=== PATIENT | female | born 1970 | race Caucasian/White ===

== ENCOUNTER 2023-06-15 07:40 | Day surgery (SDC) | payer OTHER ==
[2023-06-14 16:36] LABS: Absolute Lymphocytes (CBC) 2.7 K/uL (0.7-4.9); Hematocrit 36.6 % (36.0-45.0); Lymphocytes % 47.6 % (15.3-44.8); MPV 7.6 fL (7.6-11.3); RBC Red Blood Cell Count 3.98 M/uL (3.86-4.86)
[2023-06-14 16:50] LABS: Potassium 3.8 mEq/L (3.5-5.1)
[2023-06-15] MEDS ORDERED: Ringers Lactate 1,000 ML IV ONE (08:06)
[2023-06-15] MEDS ORDERED: LIDOCAINE 1% MPF 5 ML VIAL ONE (09:37)
[2023-06-15] MEDS ORDERED: propofoL 200 MG/20 ML VIAL IV ONE (09:37)
[2023-06-15 10:40] VITALS: BP 154/91; TEMP 97.4; O2SAT 99
--- NOTE | 2023-06-15 13:25 | EKG ---
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
== END 2023-06-15 10:40 | disposition home or self-care (01) ==
LOC: OR 07:40
PROVIDERS: ATTEND Surgery
PROC: 0DBN8ZX Excision of Sigmoid Colon, Via Natural or Artificial Opening Endoscopic, Diagnostic (ICD-10-PCS; principal; 2023-06-15 10:45)
DX: Z12.11 Encounter for screening for malignant neoplasm of colon (principal); K57.30 Diverticulosis of large intestine without perforation or abscess without bleeding; K64.8 Other hemorrhoids; K64.4 Residual hemorrhoidal skin tags
CPT/HCPCS: 93005; 85025; 80048; 36415; 88305; 45380; J2704; J2001; J7120

== ENCOUNTER 2024-05-21 11:14 | Observation (INO) | payer OTHER, SELFPAY ==
--- OUTSIDE RECORDS SUMMARY | 2024-05-21 11:18 | XMS REPORT | Continuity of Care Document ---
Author Name Unknown Address [address] [facility] [address] [place] [address] [facility] thconnect Address [address] [facility]. [address] [place] [address] Care Team Providers Care Ship Surveyor Name Role Phone Umair Saeed Primary Care Physician [phone] Umair Saeed Attending Clinician Unavailable MELISA SOLIS Attending Clinician UnavailBÁRBARA Cheema Attending Clinician Unavailable GRISELDA QURESHI V Attending Clinician Unavailable WASHINGTON DANG Attending Clinician UnavailESTER Walden Attending Clinician Unavailab le Doctor Unassigned, [place] Attending Clinician U devon Wallace RN, Nakia Kerr Attending Clinician [phone] KRZYSZTOF HERNANDEZ Attending Clinician Unavailable Corwin Rincon MD Attending Clinician [phone] Krzysztof Hernandez MD Attending Clinician [phone] G_Pappas Attending Clinician Unavailable Minda Attending Clinician Unavailable ORLANDO RUIZ Attending Clinician Unavailable LISE MARTINEZ Attending Clinician Unavailable YASMEEN ROSA Attending Clinician Unavailable LUCY FELDER Attending Clinician Unavailable Chandler Sparrow Attending Clinician Unavailable RADHA EDGAR Attending Clinician Unavailable CAMILA SLAUGHTER Attending Clinician Unavailab BEN Orozco Attending Clinician Unavail able BARBIE WOODS Attending Clinician Unavailable STEPHANIE HUFF Attending Clinician Unavailab HERRERA ching BA Attending Clinician Unavailable ROCÍO HARMON Attending Clinician Unavailable CHAD RIVERA Attending Clinician KRZYSZTOF Toussaint Admitting Clinician Unavailable Krzysztof Hernandez MD Admitting Clinician [phone] G_Pappas Admitting Clinician Unavailable Rafat_Hillary Admitting Clinician Unavailable LISE MARTINEZ Admitting Clinician Unavailable Chandler Sparrow Admitting Clinician Unavailable Payers Payer Name Policy Type Policy Number Effective Date Expirati on Date Source [place] [id number] ([facility]) [id number] Problems Condition Name Condition Details Condition Category Status Onset Date Resolution Date Last Treatment Date Treating Clinician Comments Source Generalize d abdominal pain Generalize d abdominal pain Disease Active 05-01 00:00: 00 [facility] Abdominal pain Abdominal pain Disease Active 05-01 00:00: 00 [facility] Allergies, Adverse Reactions, Alerts Allergy Name Allergy Type Status Severity Reaction(s) Onset Date Inactive Date Treating Clinician Comments Source TRAMADOL DRUG INGREDI Active ITCHING 05-02 00:00: 00 [facility] Tramadol Propensi ty to adverse reaction s Active Itching 05-02 00:00: 00 [facility] Ketorola c Propensi ty to adverse reaction s Active Itching 05-01 00:00: 00 Itching, hives [facility] KETOROLA C DRUG INGREDI Active ITCHING 05-01 00:00: 00 [facility] Social History Social Habit Start Date Stop Date Quantity Comments Source History SDOH Alcohol Std Drinks [facility] History SDOH Alcohol Binge [facility] History SDOH Social Connections Get Together [facility] History SDOH Social Connections [employer] [facility] History SDOH Social Connections Membership [facility] History SDOH Social Connections Meetings [facility] History SDOH Alcohol Frequency 2023-05-02 00:00:00 2023-05-02 00:00:00 1 [facility] History SDOH Social Connections Phone 2023-05-02 00:00:00 2023-05-02 00:00:00 5 [facility] History SDOH Social Connections Living 2023-05-02 00:00:00 2023-05-02 00:00:00 7 [facility] History SDOH Physical Activity DPW 2023-05-02 00:00:00 2023-05-02 00:00:00 0 [facility] History SDOH Physical Activity MPS 2023-05-02 00:00:00 2023-05-02 00:00:00 0 [facility] History SDOH Financial 2023-05-02 00:00:00 2023-05-02 00:00:00 5 [facility] History SDOH Food Worry 2023-05-02 00:00:00 2023-05-02 00:00:00 1 [facility] History SDOH Food Scarcity 2023-05-02 00:00:00 2023-05-02 00:00:00 1 [facility] History SDOH Transport Med 2023-05-02 00:00:00 2023-05-02 00:00:00 2 [facility] History SDOH Transport Non-Med 2023-05-02 00:00:00 2023-05-02 00:00:00 2 [facility] History SDOH Housing Unable to Pay 2023-05-02 00:00:00 2023-05-02 00:00:00 2 [facility] History SDOH Housing Places Lived 2023-05-02 00:00:00 2023-05-02 00:00:00 1 [facility] History SDOH Housing Homeless Last Year 2023-05-02 00:00:00 2023-05-02 00:00:00 2 [facility] Tobacco use and exposure 2023-05-01 00:00:00 2023-05-01 00:00:00 Smokeless tobacco non-user [facility] Sex Assigned At 1970 00:00:00 1970 00:00:00 [facility] Smoking Status Start Date Stop Date Source Never smoked tobacco [facility] Medications Ordered Medication Name Filled Medication Name Start Date Stop Date Current Medication? Ordering Clinician Indication Dosage Frequency Signature (SIG) Comments Components Source pantoprazol e 40 mg EC tablet 05-03 17:51: 24 Yes 20mg Take 20 mg by mouth in the morning. [facility] LORazepam 0.5 mg tablet 05-03 17:51: 24 Yes .5mg Take 1 tablet by mouth 3 (three) times daily as needed. [facility] citalopram (CELEXA) 20 mg tablet 05-03 17:51: 24 Yes 20mg Take 1 tablet by mouth in the morning. [facility] hydrOXYchlo roQUINE 200 mg tablet 05-03 17:51: 24 Yes 200mg Take 1 tablet by mouth in the morning. [facility] KCL 20 mEq/15 mL solution 40 mEq 05-03 15:45: 00 05-03 17:04 :00 No 40meq 40 mEq, Oral, ONCE, 1 dose, On Nighat 05/03/23 at 1045, Routine [facility] morpHINE (2 mg/mL) injection 4 mg 05-03 02:13: 35 05-05 02:12 :35 No 4mg 4 mg, Slow IV Push, Q4HPRN, Starting on Sun05/02/23 at 2113, Until Sun05/04/23 at 2112, Routine, Pain (scale 7-10) [facility] vancomycin 50 mg/mL oral solution 05-03 00:00: 00 05-12 04:59 :00 No [id number] 125mg Take 2.5 mL by mouth 4 (four) times daily for 8 days. [facility] hydrOXYchlo roQUINE (PLAQUENIL) tablet 200 mg 05-02 14:00: 00 Yes 200mg 200 mg, Oral, DAILY, First dose on Sun05/02/23 at 0900, Until Discontinu ed, Routine
Indicatio n: Rheumatic disorder [facility] citalopram (CELEXA) tablet 20 mg 05-02 14:00: 00 Yes 20mg 20 mg, Oral, DAILY, First dose on Sun05/02/23 at 0900, Until Discontinu ed, Routine [facility] pantoprazol e (PROTONIX) EC tablet 40 mg 05-02 14:00: 00 Yes 40mg 40 mg, Oral, DAILY, First dose on Sun05/02/23 at 0900, Until Discontinu ed, Routine [facility] enoxaparin (LOVENOX) injection 40 mg 05-02 14:00: 00 Yes 40mg 40 mg, Subcutaneo us, DAILY, First dose on Sun05/02/23 at 0900, Until Discontinu ed, Routine [facility] vancomycin (FIRVANQ) 50 mg/mL oral solution 125 mg 05-02 13:00: 00 05-12 12:59 :00 No 125mg 125 mg, Oral, QID, 40 doses, First dose on Sun05/02/23 at 0800, Last dose on Sun05/11/23 at 2000, Routine
Reason for Anti-Infec tive: Documented Infection< br>Documen radha Infection Site: Abdominal< br>Duratio n of Therapy: 10 days [facility] KCL (KLOR-CON M20) tablet 40 mEq 05-02 09:30: 00 05-02 09:37 :00 No 40meq 40 mEq, Oral, ONCE, 1 dose, On Sun05/02/23 at 0430, Routine [facility] HYDROcodone -acetaminop hen (NORCO 5) 5-325 mg tablet 1 tablet 05-02 03:15: 21 Yes 1{tbl} 1 tablet, Oral, Q6HPRN, Starting on Sun05/01/23 at 2215, Until Discontinu ed, Routine, Pain (scale 4-6) [facility] LORazepam (ATIVAN) tablet 0.5 mg 05-02 03:13: 04 Yes .5mg 0.5 mg, Oral, TIDPRN, Starting on Sun05/01/23 at 2213, Until Discontinu ed, Routine, Anxiety [facility] NaCl 0.9% (NS) IV infusion 1,000 mL 05-02 02:00: 00 Yes 1000mL at 125 mL/hr, IV Infusion, CONTINUOUS , Starting on Sun05/01/23 at 2100, Until Discontinu ed, Routine [facility] morpHINE (2 mg/mL) injection 4 mg 05-02 01:44: 36 05-03 01:43 :36 No 4mg 4 mg, Slow IV Push, Q4HPRN, Starting on Sun05/01/23 at 2043, Until Sun05/02/23 at 2042, Routine, Pain (scale 7-10) [facility] acetaminoph en (TYLENOL) tablet 650 mg 05-02 01:44: 33 Yes 650mg 650 mg, Oral, Q6HPRN, Starting on Sun05/01/23 at 2043, Until Discontinu ed, Routine, Pain (scale 1-3) [facility] albuterol sulfate HFA 90 mcg/actuati on aerosol inhaler INHALE 2 PUFFS EVERY 4 HOURS BY INHALATION ROUTE NEEDED. albuterol sulfate HFA 90 mcg/actuati on aerosol inhaler INHALE 2 PUFFS EVERY 4 HOURS BY INHALATION ROUTE NEEDED. No albuterol sulfate HFA 90 mcg/actuat ion aerosol inhaler INHALE 2 PUFFS EVERY 4 HOURS BY INHALATION ROUTE NEEDED. [facility] buspirone 10 mg tablet Take 1 tablet twice a day by oral route with meal(s) for 30 days. buspirone 10 mg tablet Take 1 tablet twice a day by oral route with meal(s) for 30 days. No 1 BID buspirone 10 mg tablet Take 1 tablet twice a day by oral route with meal(s) for 30 days. [facility] carvedilol 12.5 mg tablet TAKE ONE (1) TABLET(S) BY MOUTH TWICE A DAY. carvedilol 12.5 mg tablet TAKE ONE (1) TABLET(S) BY MOUTH TWICE A DAY. No carvedilol 12.5 mg tablet TAKE ONE (1) TABLET(S) BY MOUTH TWICE A DAY. [facility] h Program cholecalcif camelia (vitamin D3) 1,250 mcg (50,000 unit) capsule TAKE ONE (1) CAPSULE(S) BY MOUTH ONCE A WEEK. cholecalcif camelia (vitamin D3) 1,250 mcg (50,000 unit) capsule TAKE ONE (1) CAPSULE(S) BY MOUTH ONCE A WEEK. No cholecalci ferol (vitamin D3) 1,250 mcg (50,000 unit) capsule TAKE ONE (1) CAPSULE(S) BY MOUTH ONCE A WEEK. [facility] citalopram 40 mg tablet TAKE ONE (1) TABLET(S) BY MOUTH ONCE A DAY. citalopram 40 mg tablet TAKE ONE (1) TABLET(S) BY MOUTH ONCE A DAY. No citalopram 40 mg tablet TAKE ONE (1) TABLET(S) BY MOUTH ONCE A DAY. [facility] diclofenac sodium 75 mg tablet,katelynn yed release TAKE ONE (1) TABLET(S) BY MOUTH TWICE A DAY NEEDED FOR PAIN. diclofenac sodium 75 mg tablet,katelynn yed release TAKE ONE (1) TABLET(S) BY MOUTH TWICE A DAY NEEDED FOR PAIN. No diclofenac sodium 75 mg tablet,del ayed release TAKE ONE (1) TABLET(S) BY MOUTH TWICE A DAY NEEDED FOR PAIN. [facility] dicyclomine 10 mg capsule TAKE ONE (1) CAPSULE(S) BY MOUTH THREE TIMES A DAY. dicyclomine 10 mg capsule TAKE ONE (1) CAPSULE(S) BY MOUTH THREE TIMES A DAY. No dicyclomin e 10 mg capsule TAKE ONE (1) CAPSULE(S) BY MOUTH THREE TIMES A DAY. [facility] gabapentin 300 mg capsule TAKE ONE (1) CAPSULE(S) BY MOUTH TWICE A DAY. gabapentin 300 mg capsule TAKE ONE (1) CAPSULE(S) BY MOUTH TWICE A DAY. No gabapentin 300 mg capsule TAKE ONE (1) CAPSULE(S) BY MOUTH TWICE A DAY. [facility] hydrocodone 10 mg-acetamin ophen 325 mg tablet TAKE ONE (1) TABLET(S) BY MOUTH EVERY SIX HOURS NEEDED FOR PAIN. hydrocodone 10 mg-acetamin ophen 325 mg tablet TAKE ONE (1) TABLET(S) BY MOUTH EVERY SIX HOURS NEEDED FOR PAIN. No hydrocodon e 10 mg-acetami nophen 325 mg tablet TAKE ONE (1) TABLET(S) BY MOUTH EVERY SIX HOURS NEEDED FOR PAIN. [facility] lorazepam 2 mg tablet TAKE ONE (1) TABLET(S) BY MOUTH THREE TIMES A DAY NEEDED FOR ANXIETY. lorazepam 2 mg tablet TAKE ONE (1) TABLET(S) BY MOUTH THREE TIMES A DAY NEEDED FOR ANXIETY. No lorazepam 2 mg tablet TAKE ONE (1) TABLET(S) BY MOUTH THREE TIMES A DAY NEEDED FOR ANXIETY. [facility] montelukast 10 mg tablet TAKE 1 TABLET EVERY DAY BY ORAL ROUTE DIRECTED FOR 30 DAYS. montelukast 10 mg tablet TAKE 1 TABLET EVERY DAY BY ORAL ROUTE DIRECTED FOR 30 DAYS. No montelukas t 10 mg tablet TAKE 1 TABLET EVERY DAY BY ORAL ROUTE DIRECTED FOR 30 DAYS. [facility] neomycin-po lymyxin-hyd rocort 3.5 mg-10,000 unit/mL-1 % ear drops,susp INSTILL THREE (3) DROPS IN EACH EAR TWICE A DAY FOR 7 DAYS. neomycin-po lymyxin-hyd rocort 3.5 mg-10,000 unit/mL-1 % ear drops,susp INSTILL THREE (3) DROPS IN EACH EAR TWICE A DAY FOR 7 DAYS. No neomycin-p olymyxin-h ydrocort 3.5 mg-10,000 unit/mL-1 % ear drops,susp INSTILL THREE (3) DROPS IN EACH EAR TWICE A DAY FOR 7 DAYS. [facility] pantoprazol e 20 mg tablet,katelynn yed release TAKE ONE (1) TABLET(S) BY MOUTH ONCE A DAY. pantoprazol e 20 mg tablet,katelynn yed release TAKE ONE (1) TABLET(S) BY MOUTH ONCE A DAY. No pantoprazo le 20 mg tablet,del ayed release TAKE ONE (1) TABLET(S) BY MOUTH ONCE A DAY. [facility] prazosin 1 mg capsule Take 1 capsule every day by oral route at bedtime for 30 days. prazosin 1 mg capsule Take 1 capsule every day by oral route at bedtime for 30 days. No 1capsul e(s) Q1D prazosin 1 mg capsule Take 1 capsule every day by oral route at bedtime for 30 days. [facility] prednisone 10 mg tablet TAKE ONE-HALF (1/2) TABLET(S) BY MOUTH ONCE A DAY. prednisone 10 mg tablet TAKE ONE-HALF (1/2) TABLET(S) BY MOUTH ONCE A DAY. No prednisone 10 mg tablet TAKE ONE-HALF (1/2) TABLET(S) BY MOUTH ONCE A DAY. [facility] sulfamethox azole 800 mg-trimetho prim 160 mg tablet TAKE ONE (1) TABLET(S) BY MOUTH TWICE A DAY FOR SEVEN DAYS. sulfamethox azole 800 mg-trimetho prim 160 mg tablet TAKE ONE (1) TABLET(S) BY MOUTH TWICE A DAY FOR SEVEN DAYS. No sulfametho xazole 800 mg-trimeth oprim 160 mg tablet TAKE ONE (1) TABLET(S) BY MOUTH TWICE A DAY FOR SEVEN DAYS. [facility] Abilify 5 mg tablet Take 1 tablet every day by oral route with meal(s) for 30 days. Abilify 5 mg tablet Take 1 tablet every day by oral route with meal(s) for 30 days. No 1 Q1D Abilify 5 mg tablet Take 1 tablet every day by oral route with meal(s) for 30 days. [facility] h Program albuterol sulfate 2.5 mg/3 mL (0.083 %) solution for nebulizatio n USE ONE VIAL VIA NEBULIZER FOUR TIMES A DAY NEEDED. albuterol sulfate 2.5 mg/3 mL (0.083 %) solution for nebulizatio n USE ONE VIAL VIA NEBULIZER FOUR TIMES A DAY NEEDED. No albuterol sulfate 2.5 mg/3 mL (0.083 %) solution for nebulizati on USE ONE VIAL VIA NEBULIZER FOUR TIMES A DAY NEEDED. [facility] Immunizations Ordered Immunization Name Filled Immunization Name Date Status Comments Source Tdap - ML Tdap - ML Unknown Completed [facility] influenza, recombinant, quadrIvalent,injectab le, preservative free - ML influenza, recombinant, quadrIvalent,injecta ble, preservative free - ML Unknown Completed [facility] Vital Signs Vital Name Observation Time Observation Value Comments S ource BP Diastolic 2024-05-15 00:00:00 88 mm[Hg] [facility] BP Systolic 2024-05-15 00:00:00 144 mm[Hg] [facility] Body Weight 2024-05-15 00:00:00 104 [lb_av] [facility] Systolic blood pressure 2023-05-03 20:39:00 129 mm[Hg] [facility] Diastolic blood pressure 2023-05-03 20:39:00 92 mm[Hg] [facility] Heart rate 2023-05-03 20:39:00 76 /min [facility] Body temperature 2023-05-03 20:39:00 36.67 Ara [facility] Respiratory rate 2023-05-03 20:39:00 16 /min [facility] Oxygen saturation in Arterial blood by Pulse oximetry 2023-05-03 20:39:00 98 /min [facility] Body weight 2023-05-02 09:05:00 50.984 kg [facility] BMI 2023-05-02 09:05:00 21.95 kg/m2 [facility] Body height 2023-05-02 01:36:00 152.4 cm [facility] Procedures Procedure Date / Time Performed Performing Clinician Source EXTERNAL PROVIDER RECORDS 2023-05-16 05:01:00 Do ctor Unassigned, [place] [facility] BASIC METABOLIC PANEL (NA, K, CL, CO2, GLUCOSE, BUN, CREATININE, CA) 2023-05-03 10:52:00 Renteria, Rosemary [facility] CBC WITH DIFF 2023-05-03 09:39:00 Rosemary Renteria [facility] FECES CULTURE 2023-05-02 02:46:00 Krzysztof Hernandez [facility] CLOSTRIDIUM DIFFICILE TOXIN 2023-05-02 02:46:00 [facility] MAGNESIUM 2023-05-02 01:53:[address] [facility] COMP. METABOLIC PANEL ([id number]) 2023-05-02 01:53:00 [facility] CBC WITHOUT DIFF 2023-05-02 01:53:00 Krzysztof Hernandez [facility] PROTHROMBIN TIME / INR 2023-05-02 01:53:00 Kimberly Hernandez [facility] Colonoscopy [facility] Dilation and Curettage [facility] [place] [facility] Medical Hospitalization [facility] Tonsillectomy [facility] Tubal Ligation [facility] Encounters Start Date/Time End Date/Time Encounter Type Admission Type Attending Clinicians Care Facility Care Department Encounter ID Source 2023-10-22 16:30:00 Inpatient Umair Garcia [facility] [id number] [facility] 2023-04-09 11:00:00 Inpatient LEE SOLIS MELISA [facility] [id number] [facility] 2024-05-15 00:00:00 2024-05-15 00:00:00 Manuel Hernandez MD: [id number], [place] [address] , Ph. [phone] [facility] [id number] [facility] 2024-04-07 07:41:00 2024-04-18 00:01:00 Outpatient BÁRBARA MONCADA [facility] [id number] [facility] 2024-02-27 13:54:00 2024-02-27 13:54:00 Outpatient BÁRBARA MONCADA [facility] [id number] [facility] 2024-01-31 13:00:00 2024-02-17 00:01:00 Outpatient GRISELDA CARR [facility] [id number] [facility] 2024-02-09 15:57:00 2024-02-09 19:06:00 Emergency ER WASHINGTON DANG [facility] [id number] [facility] 2024-01-29 16:00:00 2024-01-29 16:00:00 Outpatient GRISELDA CARR [facility] [id number] [facility] 2024-01-24 13:00:00 2024-01-24 13:00:00 Outpatient GRISELDA CARR [facility] [id number] [facility] 2024-01-18 08:33:00 2024-01-18 08:33:00 Outpatient GRISELDA CARR [facility] [id number] [facility] 2024-01-10 13:00:00 2024-01-17 00:01:00 Outpatient MAEVE CARRA [facility] [id number] [facility] 2024-01-08 12:40:00 2024-01-08 12:40:00 Outpatient LISANDRA CARRNDA [facility] [id number] [facility] 2023-11-15 17:24:00 2023-11-15 20:35:00 Emergency ER ESTER LICEA [facility] [id number] [facility] 2023-10-02 12:11:00 2023-10-02 12:11:00 Outpatient GRISELDA CARR [facility] [id number] [facility] 2023-05-16 00:00:00 2023-05-16 00:00:00 Orders Only Doctor Unassigned, [place] [facility] [id number] [facility] 2023-05-04 00:00:00 2023-05-04 00:00:00 Transition of Care Nakia Wallace FAVIOLA [facility] [id number] [facility] 2023-05-01 20:35:00 2023-05-03 17:51:00 Inpatient U DAVID [facility] [id number] [facility] 2023-05-01 20:35:00 2023-05-03 17:51:00 Hospital Encounter Corwin Rincon [facility] ([facility]) [id number] [facility] 2023-05-01 14:23:00 2023-05-01 18:55:00 Emergency ER WASHINGTON DANG [facility] [id number] [facility] 2023-03-09 10:19:00 2023-03-09 13:58:00 Emergency ER WASHINGTON DANG [facility] [id number] [facility] 2023-03-05 00:00:00 2023-03-05 00:00:00 Outpatient G_Pappas [facility] [id number] [facility] 2022-11-03 16:14:00 2022-11-03 16:14:00 Outpatient MELISA MARSHALL [facility] [id number] [place] [facility] 2022-07-11 14:12:00 2022-07-11 14:12:00 Outpatient UMAIR GARCIA [facility] [id number] [place] [facility] 2022-06-14 00:00:00 2022-06-14 00:00:00 [place] [facility] [id number] [place] [facility] 2020-10-06 02:27:00 2020-10-06 02:27:00 Outpatient Brown_R [facility] [id number] [facility] 2020-10-06 00:00:00 2020-10-06 00:00:00 Outpatient Brown_R [facility] [id number] [facility] 2020-09-07 03:33:00 2020-09-07 04:21:00 Emergency ER ORLANDO RUIZ [facility] [id number] [facility] 2020-08-26 17:15:00 2020-08-27 16:00:00 Inpatient ER LISE MARTINEZ [facility] [id number] [place] [facility] 2019-12-20 13:49:00 2019-12-20 16:40:00 Emergency ER YASMEEN ROSA [facility] [id number] [facility] 2019-09-21 17:38:00 2019-09-21 21:47:00 Emergency ER LUCY FELDER [id number] [facility] 2019-06-30 14:29:00 2019-07-02 18:00:00 Inpatient ER LISE MARTINEZ [facility] [id number] [facility] 2019-01-29 19:44:00 2019-02-02 15:26:00 Inpatient ER Chandler Sparrow [facility] [id number] [facility] 2018-12-11 15:12:00 2018-12-11 19:25:00 Emergency ER RADHA EDGAR [facility] [id number] [facility] 2018-08-30 16:07:00 2018-08-30 16:07:00 Outpatient GRISELDA CARR [facility] [id number] [facility] 2018-01-16 18:06:00 2018-01-16 20:15:00 Emergency ER UGNORAH FLORESMENT [facility] [id number] [facility] 2017-03-27 04:39:00 2017-03-27 06:48:00 Emergency ER KASANDRA CLEMENT [facility] [id number] [facility] 2017-01-26 03:44:00 2017-01-26 04:51:00 Emergency ER LY BEN [facility] [id number] [facility] [facility] 2016-12-24 11:48:00 2016-12-24 13:43:00 Emergency ER BARBIE WOODS [facility] [id number] [facility] 2014-12-27 20:13:00 2014-12-28 01:00:00 Emergency ER STEPHANIE HUFF [facility] [id number] [facility] 2014-06-25 12:46:00 2014-06-25 17:41:00 Emergency ER KASANDRA CLEMENT [facility] [id number] [facility] 2014-02-07 23:53:00 2014-02-08 02:14:00 Emergency ER LUCIANO HERRERA [facility] [id number] [facility] 2013-12-14 12:33:00 2013-12-17 14:00:00 Inpatient ER Chandler Sparrow [facility] [id number] [facility] 2013-10-14 09:52:00 2013-10-14 11:18:00 Emergency ER CAMILA SLAUGHTER [facility] [id number] [facility] 2012-03-16 15:10:00 2012-03-20 13:40:00 Inpatient ER LISE MARTINEZ [facility] [id number] [facility] 2011-07-18 17:18:00 2011-07-18 19:43:00 Emergency ER ROCÍO HARMON [facility] [id number] [facility] 2011-07-12 09:03:00 2011-07-15 18:01:00 Inpatient ER LISE MARTINEZ [facility] [id number] [facility] 2011-07-08 06:00:00 2011-07-10 05:41:00 Inpatient ER LISE MARTINEZ [facility] [id number] [facility] 2009-10-08 13:44:00 2009-10-08 17:40:00 Emergency ER IMMARAJ, [facility] [id number] [facility] 2009-09-13 19:16:00 2009-09-13 23:55:00 Emergency ER [facility]AJ[facility] [id number] [facility] 2009-09-02 12:10:00 2009-09-02 13:46:00 Emergency ER HERRERA WOLF [facility] [id number] [facility] Results Test Description Test Time Test Comments Results Result Co mments Source [facility]
[2024-05-21 11:52] LABS: Absolute Basophils 0.1 K/uL (0-0.5); Absolute Eosinophils 0.5 K/uL (0-0.5); Absolute Lymphocytes (CBC) 2.6 K/uL (0.7-4.9); Absolute Monocytes 0.6 K/uL (0.1-1.3); Absolute Neutrophil 2.2 K/uL (1.8-8.0); Basophils % 1.5 % (0-1.3); Eosinophils % 9.1 % (0-4.4); Hematocrit 32.5 % (36.0-45.0); Hemoglobin 10.8 g/dL (12.0-15.0); Lymphocytes % 43.9 % (15.3-44.8); MCH 28.8 pg (27.0-35.0); MCHC 33.1 g/dL (32.0-36.0); MPV 7.7 fL (7.6-11.3); Monocytes % 9.6 % (3.3-12.3); Neutrophils % 35.9 % (41.7-73.7); Nucleated Red Blood Cells % 0.1 % (0-0); Platelets 383 thou/uL (152-406); RBC Red Blood Cell Count 3.74 M/uL (3.86-4.86); Red Cell Distribution Width 12.8 % (12.1-15.2)
--- NOTE | 2024-05-21 11:55 | RAD REPORT ---
EXAM DESCRIPTION: RAD - Chest Single View - 05/21/2024 11:46 am CLINICAL HISTORY: hypoxia COMPARISON: No comparisons FINDINGS: Lines: None. Lungs: No evidence of edema or pneumonia. Pleural: No significant pleural effusions or pneumothorax. Cardiac: The heart size is within normal limits. Mediastinum: Within normal limits. Bones: No acute fractures. Other: None IMPRESSION: No acute cardiopulmonary disease.
[2024-05-21 11:56] LABS: PTT, Activated Partial Thromb 27.5 SECONDS (24.3-36.9); Protime INR 1.19
[2024-05-21 12:06] LABS: ALT/SGPT 33 U/L (13-56); AST/SGOT 27 U/L (15-37); Albumin/Globulin Ratio 0.9 (1.1-1.8); Alkaline Phosphatase 128 U/L (45-117); Anion Gap 6.4 mEq/L (5.0-15.0); BUN Blood Urea Nitrogen 9 mg/dL (7-18); Bicarbonate 32 mEq/L (21-32); Bilirubin Total 0.3 mg/dL (0.2-1.0); Globulin 3.5 g/dL (2.3-3.5); Glomerular Filtration Rate 99 ml/min (=/>90); Glucose Level 85 mg/dL (74-106); Potassium 3.4 mEq/L (3.5-5.1); Protein, Total 6.5 g/dL (6.4-8.2); Sodium Level 128 mEq/L (136-145)
--- NOTE | 2024-05-21 12:08 | RAD REPORT ---
EXAM DESCRIPTION: CT - Head Brain Wo Cont - 05/21/2024 11:51 am CLINICAL HISTORY: altered mental status COMPARISON: No comparisons TECHNIQUE: All CT scans are performed using dose optimization technique as appropriate and may inclu de automated exposure control or mA/KV adjustment according to patient size. FINDINGS: No intracranial hemorrhage, hydrocephalus or extra-axial fluid collection.No areas of brai n edema or evidence of midline shift. Paranasal sinus thickening bilaterally. This involves the maxillary sinuses and ethmoid air cells. Un derpneumatized frontal sinuses. Prior FESS. The calvarium is intact. IMPRESSION: No acute intracranial abnormality.
[2024-05-21 12:11] LABS: Bilirubin Direct < 0.2 mg/dL (0-0.2); Bilirubin Indirect, Calculated 0.1 mg/dL (0.2-0.8)
--- NOTE | 2024-05-21 13:21 | EDPHYS ---
Physician Documentation [facility] Name: Francine Marin Age: 53 yrs Sex: Female : 1970 Arrival Date: 05/21/2024 Time: 11:14 Bed 15 Private MD: ED Physician Syed Hernandez HPI: 05/21 12:08 This 53 yrs old Female presents to ER via EMS with complaints of Blood Pressure Problem.sp3 12:08 53-year-old female with a history of hypertension, asthma, chronic pain, depression, sp3 PTSD recently placed on new psychiatric medications including venlafaxine presents referred by Dr. Wray's office. Patient was there with her mom getting routine postop care when patient started to have decreased mental status, sleepiness and difficulty staying awake. Patient denies any trauma, headache, neck pain, chest pain, shortness of breath, abdominal pain, vomiting, diarrhea or any other signs or symptoms on ROS at this time. She does acknowledge her change in mental status and she attributes it to the medications.. Historical: - Allergies: 11:38 tramadol; nj1 - PMHx: 11:38 Asthma; Hypertensive disorder; Gastric reflux; Chronic pain; Depressive disorder; PTSD; nj1 - Immunization history:: Client reports receiving the 2nd dose of the Covid vaccine. - Infectious Disease History:: Denies. - Social history:: Smoking status: Patient denies any tobacco usage or history of. ROS: 12:10 Constitutional: Negative for fever, chills, and weight loss, Eyes: Negative for injury, sp3 pain, redness, and discharge, ENT: Negative for injury, pain, and discharge, Neck: Negative for injury, pain, and swelling, Cardiovascular: Negative for chest pain, palpitations, and edema, Respiratory: Negative for shortness of breath, cough, wheezing, and pleuritic chest pain, Abdomen/GI: Negative for abdominal pain, nausea, vomiting, diarrhea, and constipation, Back: Negative for injury and pain, MS/Extremity: Negative for injury and deformity, Skin: Negative for injury, rash, and discoloration, Allergy/Immunology: Negative for hives, rash, and allergies, Endocrine: Negative for neck swelling, polydipsia, polyuria, polyphagia, and marked weight changes, Hematologic/Lymphatic: Negative for swollen nodes, abnormal bleeding, and unusual bruising, 12:10 All other systems are negative, Exam: 12:10 Constitutional: This is a well developed, well nourished patient who is awake, alert, sp3 and in no acute distress. Head/Face: Normocephalic, atraumatic. Eyes: Pupils equal round and reactive to light, extra-ocular motions intact. Lids and lashes normal. Conjunctiva and sclera are non-icteric and not injected. Cornea within normal limits. Periorbital areas with no swelling, redness, or edema. ENT: Nares patent. No nasal discharge, no septal abnormalities noted. External auditory canals are clear. Oropharynx with no redness, swelling, or masses, exudates, or evidence of obstruction, uvula midline. Mucous membranes moist. Neck: Trachea midline, no thyromegaly or masses palpated, and no cervical lymphadenopathy. Supple, full range of motion without nuchal rigidity, or vertebral point tenderness. No Meningismus. Chest/axilla: Normal chest wall appearance and motion. Nontender with no deformity. No lesions are appreciated. Cardiovascular: Regular rate and rhythm with a normal S1 and S2. No gallops, murmurs, or rubs. Normal PMI, no JVD. No pulse deficits. Respiratory: Lungs have equal breath sounds bilaterally, clear to auscultation and percussion. No rales, rhonchi or wheezes noted. No increased work of breathing, no retractions or nasal flaring. Abdomen/GI: Soft, non-tender, with normal bowel sounds. No distension or tympany. No guarding or rebound. No evidence of tenderness throughout. Back: No spinal tenderness. No costovertebral tenderness. Full range of motion. Skin: Warm, dry with normal turgor. Normal color with no rashes, no lesions, and no evidence of cellulitis. MS/ Extremity: Pulses equal, no cyanosis. Neurovascular intact. Full, normal range of motion. Psych: Awake, alert, with orientation to person, place and time. Behavior, mood, and affect are within normal limits. 12:10 Neuro: Patient with decreased responsiveness and extremely drowsy. I have to shake patient in order to get her to wake up to speak. Pulse oxygenation in the 86 to 87% range while sleeping which then comes up when awake. Blood pressure reported [address] Wray's office however here it is 102/72. Patient has no respiratory distress, accessory muscle use or other difficulty breathing., Vital Signs: 11:13 BP 102 / 72; Pulse 64; Resp 16; Temp 97.4(O); Pulse Ox 96% on R/A; Weight 47.17 kg; nj1 Height 5 ft. 0 in. ; 11:35 Pulse Ox 89% on R/A; nj1 12:29 BP 110 / 82; Pulse 62; Resp 18; Pulse Ox 100% on R/A; nj1 14:17 BP 114 / 81; Pulse 75; Resp 24; Pulse Ox 100% on 2 lpm NC; nj1 15:40 BP 120 / 87; Pulse 67; Resp 18; Pulse Ox 97% on 2 lpm NC; mb9 11:13 Body Mass Index 20.31 (47.17 kg, 152.4 cm) nj1 MDM: 11:25 Patient medically screened. sp3 12:11 Data reviewed: vital signs, nurses notes, lab test result(s), EKG, radiologic studies. sp3 ED course: 53-year-old female with altered mental status and hypoxia when sleeping secondary to probable medication conflict and/or overmedication. Other options include infection, intracranial pathology, electrolyte disturbance, TIA/CVA spectrum, among others. Workup will include CT scan of the head, EKG, labs, UA and general observation and supportive care with probable admission given mental status changes.. 05/21 11:26 Order name: Acetaminophen; Complete Time: 12:13 3 05/21 11:26 Order name: Basic Metabolic Panel; Complete Time: 12:13 3 05/21 11:26 Order name: CBC with Diff; Complete Time: 12:13 3 05/21 11:26 Order name: ETOH Level; Complete Time: 13:15 3 05/21 11:26 Order name: Hepatic Function; Complete Time: 12:13 3 05/21 11:26 Order name: PT-INR; Complete Time: 12:13 3 05/21 11:26 Order name: Ptt, Activated; Complete Time: 12:13 3 05/21 11:26 Order name: Salicylate; Complete Time: 13:15 3 05/21 11:26 Order name: Urine Drug Screen 3 05/21 11:26 Order name: Test, Urine 3 05/21 11:30 Order name: ABG: VBG; Complete Time: 14:00 sp3 05/21 14:43 Order name: CBC with Automated Diff EDMS 05/21 14:43 Order name: CBC with Automated Diff EDMS 05/21 14:43 Order name: CBC with Automated Diff EDMS 05/21 14:43 Order name: CBC with Automated Diff EDMS 05/21 14:43 Order name: Comprehensive Metabolic Panel EDMS 05/21 14:43 Order name: Comprehensive Metabolic Panel EDMS 05/21 14:43 Order name: Comprehensive Metabolic Panel EDMS 05/21 14:43 Order name: Comprehensive Metabolic Panel EDMS 05/21 14:43 Order name: Lipid Profile EDMS 05/21 14:43 Order name: Lipid Profile EDMS 05/21 11:26 Order name: CT Head Brain wo Cont; Complete Time: 12:13 sp3 05/21 11:30 Order name: CXR XRAY; Complete Time: 12:13 sp3 05/21 11:26 Order name: EKG; Complete Time: 11:26 sp3 05/21 11:26 Order name: EKG - Nurse/Tech; Complete Time: 12:27 sp3 05/21 11:26 Order name: IV Saline Lock; Complete Time: 11:34 sp3 05/21 11:26 Order name: Labs collected and sent; Complete Time: 11:45 sp3 Administered Medications: No medications were administered Disposition Summary: 05/21/24 13:20 Hospitalization Ordered Notes: Hospitalization Status: Observation sp3 Provider: Avani Lei sp3 Location: Telemetry/MedSurg (observation) sp3 Condition: Stable sp3 Problem: an acute exacerbation sp3 Symptoms: have worsened sp3 Bed/Room Type: Standard sp3 Room Assignment: 209(05/21/24 15:36) as6 Diagnosis - Altered mental status, medication side effect sp3 Forms: - Medication Reconciliation Form sp3 - SBAR form sp3 - Leadership Thank You Letter sp3 Signatures: Dispatcher [employer] Estelita Tracey FNP-C [employer] RESEARCH SCIENTIST-Csnw Syed Hernandez MD MD sp3 Ace Kothari RN RN as6 Jazmín Morocho RN RN nj1 Corrections: (The following items were deleted from the chart) 11:26 11:26 ACETAMINOPHEN+C.LAB.BRZ ordered. EDMS EDMS 11 11:26 BASIC METABOLIC PANEL+C.LAB.BRZ ordered. EDMS EDMS 11 11: CBC+H.LAB.BRZ ordered. EDMS EDMS : 11: ETHANOL+C.LAB.BRZ ordered. EDMS EDMS 11: 11:26 HEPATIC FUNCTION+C.LAB.BRZ ordered. EDMS EDMS 11:26 PROTIME (+INR)+COAG.LAB.BRZ ordered. EDMS EDMS 11: PTT, ACTIVATED+COAG.LAB.BRZ ordered. EDMS EDMS 11 11:26 SALICYLATE+C.LAB.BRZ ordered. EDMS EDMS 11 11: URINE DRUG SCREEN+UC.LAB.BRZ ordered. EDMS EDMS 11:26 Test, Urine+UC.LAB.BRZ ordered. EDMS EDMS 11:40 11:38 PMHx: Hypothyroidism; nj1 nj1 15:36 13:20 sp3 as6
--- NOTE | 2024-05-21 13:21 | ER ---
Nurse's Notes [facility] Name: Francine Marin Age: 53 yrs Sex: Female : 1970 Arrival Date: 05/21/2024 Time: 11:14 Bed 15 Private MD: Diagnosis: Altered mental status, medication side effect Presentation: 05/21 11:13 Chief complaint: EMS states: Took mother to doctor and while being there, they noticed nj1 her getting sleepy, found bp to be 70/50. Pt started this morning on 2 new medications: abilify and venlafaxine. 11:13 Method Of Arrival: EMS: [facility] nj1 11:13 Coronavirus screen: Vaccine status: Patient reports receiving the 2nd dose of the covid nj1 vaccine. Ebola Screen: Patient denies travel to an Ebola-affected area in the 21 days before illness onset. Initial Sepsis Screen: Does the patient meet any 2 criteria? No. Patient's initial sepsis screen is negative. Does the patient have a suspected source of infection? No. Patient's initial sepsis screen is negative. Risk Assessment: Do you want to hurt yourself or someone else? Patient reports no desire to harm self or others. Onset of symptoms was May 21, 2024. 11:13 Acuity: TRAE 3 nj1 11:15 Care prior to arrival: Medication(s) given: Normal saline infusion, 100 ml IV nj1 initiated. 18 GA, in the right antecubital area, Glucose check: 131. Historical: - Allergies: 11:38 tramadol; nj1 - PMHx: 11:38 Asthma; Hypertensive disorder; Gastric reflux; Chronic pain; Depressive disorder; PTSD; nj1 - Immunization history:: Client reports receiving the 2nd dose of the Covid vaccine. - Infectious Disease History:: Denies. - Social history:: Smoking status: Patient denies any tobacco usage or history of. Screenin:35 [facility] ED Fall Risk Assessment (Adult) History of falling in the last 3 months, mb9 including since admission Yes- single mechanical fall (1 pt) Confusion or Disorientation Yes (5 pts) Intoxicated or Sedated No (0 pts) Impaired Gait No (0 pts) Mobility Assist Device Used Yes (1 pt) Altered Elimination No (0 pt) Score/Fall Risk Level 3 or more points = High Risk Oriented to surroundings, Maintained a safe environment, Educated pt \T\ family on fall prevention, incl call for assistance when getting out of bed. Abuse screen: Denies threats or abuse. Nutritional screening: No deficits noted. Tuberculosis screening: No symptoms or risk factors identified. Assessment: 11:40 General: Appears in no apparent distress. comfortable, Behavior is calm, cooperative, nj1 appropriate for age. Pain: Denies pain. Neuro: Level of Consciousness is obeys commands, lethargic, Oriented to person, place, time, situation, Speech is normal, Reports Fatigue. Cardiovascular: Patient's skin is warm and dry. Respiratory: Airway is patent Respiratory effort is even, unlabored. 12:29 Reassessment: Patient appears in no apparent distress at this time. No changes from [facility] previously documented assessment. 14:17 Reassessment: Patient appears in no apparent distress at this time. Patient and/or de1 family updated on plan of care and expected duration. Pain level reassessed. Patient is alert, oriented x 3, equal unlabored respirations, skin warm/dry/pink. 16:00 Reassessment: Patient appears in no apparent distress at this time. No changes from 9 previously documented assessment. Patient and/or family updated on plan of care and expected duration. Pain level reassessed. Patient is alert, oriented x 3, equal unlabored respirations, skin warm/dry/pink. Vital Signs: 11:13 BP 102 / 72; Pulse 64; Resp 16; Temp 97.4(O); Pulse Ox 96% on R/A; Weight 47.17 kg; nj1 Height 5 ft. 0 in. ; 11:35 Pulse Ox 89% on R/A; nj1 12:29 BP 110 / 82; Pulse 62; Resp 18; Pulse Ox 100% on R/A; nj1 14:17 BP 114 / 81; Pulse 75; Resp 24; Pulse Ox 100% on 2 lpm NC; nj1 15:40 BP 120 / 87; Pulse 67; Resp 18; Pulse Ox 97% on 2 lpm NC; mb9 11:13 Body Mass Index 20.31 (47.17 kg, 152.4 cm) [facility] ED Course: 11:16 Patient arrived in ED. nj1 11:18 Syed Hernandez MD is Attending Physician. sp3 11:34 Rashawn, Jazmín, RN is Primary Nurse. nj1 11:36 Oxygen administration via nasal cannula \T\ 2L/min. nj1 11:38 Triage completed. nj1 11:40 Arm band placed on. nj1 11:48 CXR XRAY In Process Unspecified. EDMS 11:52 CT Head Brain wo Cont In Process Unspecified. EDMS 13:20 Avani Lei MD is Hospitalizing Provider. sp3 14:00 Placed in gown. Bed in low position. Call light in reach. Side rails up X 1. Client 9 placed on continuous cardiac and pulse oximetry monitoring. NIBP monitoring applied. 16:44 No provider procedures requiring assistance completed. Patient admitted, IV remains in mb9 place. Administered Medications: No medications were administered Medication: 16:43 VIS not applicable for this client. 9 Outcome: 13:20 Decision to Hospitalize by Provider. sp3 16:44 Admitted to 9 16:44 Admitted to Med/surg 16:44 Condition: stable 16:44 Instructed on the need for admit, 16:49 Patient left the ED. 9 Signatures: Dispatcher [employer] EDSyed Herman MD MD sp3 Ida Doan RN RN mb9 Jazmín Morocho RN RN nj1 Corrections: (The following items were deleted from the chart) 11:40 11:38 PMHx: Hypothyroidism; nj1 nj1
[2024-05-21 13:55] LABS: Blood Gas THB 0.9 g/dl (12-18)
--- NOTE | 2024-05-21 14:17 | P.HP ---
Certification for Inpatient Patient admitted to: Observation With expected LOS: <2 Midnights Patient will require the following post-hospital care: None Practitioner: I am a practitioner with admitting privileges, knowledge of patient current condition, hospital course, and medical plan of care. Services: Services provided to patient in accordance with Admission requirements found in Title 42 Section 412.3 of the Code of Federal Regulations <Estelita Jessica - Last Filed: 05/21/24 14:11> Patient History Date of Service: 05/21/24 Reason for admission: Near syncope, hypotension, hyponatremia History of Present Illness: Ms. Marin is a 53-year-old with a past medical history of alcoholism (sober x 3 to 4 years), hypertension, asthma, PTSD, and depression. She has recently seen her nurse practitioner and her psychiatrist, Dr. Hernandez. She was switched from citalopram to Effexor yesterday. Abilify was added to her regimen of lorazepam, hydrocodone, and gabapentin as well. This morning she awoke early to get ready to take her Mom to the Doctor in [place] from [place]. She did not eat but did take her medication (including Abilify). While her mom was being examined, she became obtunded, diaphoretic, with decreased orientation. EMS was called to the doctor's office. On their arrival her systolic blood pressure was in the 70s. She was given a fluid bolus and route to the emergency department. On exam she is feeling better, oriented x 3, but does appear sleepy. She will be admitted for observation, gentle hydration, and further evaluation. Vital signs on admission 97/76, 100% on room air, respirations 16, heart rate 73 LABS: WBC 6.0 with 35.9% neutrophils, interestingly her eosinophils are 9.1%, H/H 10.8/32.5 with platelets of 383 Sodium 128, potassium 3.4, chloride 93, CO2 32, glucose 85, BUN 9, creatinine 0.72 with a GFR of 99, EtOH less than 10, VBG with a pH of 7.3, UDS pending Imaging: CT head - impression "no acute intracranial abnormality" Chest x-ray -impression "no acute cardiopulmonary disease" Home medications list reviewed: Yes - Past Medical/Surgical History Has patient received pneumonia vaccine in the past: No -: Alcoholism -sober x 3 years -: PTSD -: Hypertension -: Depression -: asthma -: Sinus surgery -: Tonsillectomy -: tubal ligation -: D&C Psychosocial/ Personal History: [place]. Currently seeing psychiatry status post dog bite in January 2024. States reactivation of PTSD from multiple unresolved traumas. Multiple medication changes in the last week - Family History Father -: Heart disease, Hypertension, Lung disease, Diabetes Mother -: Heart disease, Hypertension, Lung disease, Diabetes - Social History Smoking Status: Never smoker Patient receptive to therapy: Yes (Recovering alcoholic) Alcohol use: Yes CD- Drugs: No Caffeine use: Yes Place of Residence: Home <Estelita Jessica Jim - Last Filed: 05/21/24 14:11> Date of Service: 05/21/24 <Avani Lei - Last Filed: 05/21/24 17:58> Allergies tramadol Allergy (Verified 06/15/23 08:28) Itching/Hives/Rash Home Medications: Carvedilol [Coreg] 12.5 mg PO BID 06/14/23 Gabapentin 300 mg PO BID 06/14/23 Hydrocodone Bit/Acetaminophen [Hydrocodon-Acetaminophn 10-325] 1 tab PO TIDP PRN 06/14/23 LORazepam [Ativan*] 2 mg PO TIDP PRN 06/14/23 Pantoprazole Sodium 1 tab PO DAILY 06/14/23 ARIPiprazole [Abilify*] 1 tab PO DAILY 05/21/24 Albuterol Inhaler [Ventolin Inhaler*] 2 puff IH PRN PRN 05/21/24 Buspirone HCl [Buspar] 10 mg PO BID 05/21/24 Dicyclomine [Bentyl] 10 mg PO TID 05/21/24 Fluticasone/Umeclidin/Vilanter [Trelegy Ellipta 100-62.5-25] 1 puff IH DAILY 05/21/24 Methylprednisolone [Medrol dosepack] 4 mg PO TID 05/21/24 Flaivo/Polym/Hc Otic Nena [Cortisporin 1% Otic Solution*] 2 - 3 drops EACH EAR TIDP PRN 05/21/24 Prazosin HCl [Minipress] 1 mg PO BEDTIME 05/21/24 Venlafaxine HCl [Effexor Xr] 75 mg PO DAILY 05/21/24 predniSONE [Deltasone] 5 mg PO DAILY 05/21/24 Review of Systems 10-point ROS is otherwise unremarkable General: Sweats, Weakness, Malaise Cardiovascular: Other (syncope), As per HPI Neurological: Weakness, As per HPI <Estelita Jessica - Last Filed: 05/21/24 14:11> Physical Examination - Physical Exam General: Alert, In no apparent distress, Other (thin) HEENT: Atraumatic, Normocephalic Neck: Supple Respiratory: Normal air movement Cardiovascular: Normal pulses, Regular rate/rhythm Capillary refill: <2 Seconds Gastrointestinal: Normal bowel sounds, Soft and benign Musculoskeletal: No clubbing Integumentary: No rashes Neurological: Normal speech, Normal tone, Normal affect Lymphatics: No axilla or inguinal lymphadenopathy External genitalia: Deferred Rectal: Deferred Other Physical/Emotional Findings: PTSD, changing psych medications. Took Abilify and Effexor this am without eating and took her Mom to the Doctor. Tearful s/p dogbite in 02/09 that reactivated unresolved trauma - Studies Laboratory Data (last 24 hrs) 05/21/24 05/21/24 05/21/24 11:35 11:35 11:35 WBC 6.00 Hgb 10.8 L Hct 32.5 L Plt Count 383 PT 13.0 H INR 1.19 APTT 27.5 Sodium 128 L Potassium 3.4 L BUN 9 Creatinine 0.72 Glucose 85 Total Bilirubin 0.3 AST 27 ALT 33 Alkaline Phosphatase 128 H <Estelita Jessica - Last Filed: 05/21/24 14:11> - Studies Laboratory Data (last 24 hrs) 05/21/24 05/21/24 05/21/24 11:35 11:35 11:35 WBC 6.00 Hgb 10.8 L Hct 32.5 L Plt Count 383 PT 13.0 H INR 1.19 APTT 27.5 Sodium 128 L Potassium 3.4 L BUN 9 Creatinine 0.72 Glucose 85 Total Bilirubin 0.3 AST 27 ALT 33 Alkaline Phosphatase 128 H <Avani Lei - Last Filed: 05/21/24 17:58> Assessment and Plan - Plan Near syncope with hypotension Gentle hydration Regular diet Hyponatremia Probably secondary to psych medications Hold lorazepam Hold hydrocodone Decrease gabapentin to 100 mg p.o. 3 times daily Neurochecks every 4 hours Monitor and trend electrolytes, replete as needed Will need repeat psych follow-up visit with Dr. Hernandez post discharge Hypertension Patient normally takes carvedilol 12.5 mg twice daily -hold for now secondary to hypotension Monitor and trend vital signs PTSD Hold Abilify, restart Effexor ER 37.5 mg tomorrow morning VTE/GI prophylaxis SCDs/Protonix Discharge Plan: Home Plan to discharge in: 24 Hours - Advance Directives Does patient have a Living Will: No Does patient have a Durable POA for Healthcare: No - Code Status/Comfort Care Code Status Assessed: Yes Code Status: Full Code <Estelita Jessica - Last Filed: 05/21/24 14:11> - Plan Pt seen and examined. I agree with the note by the HISTORICAL RECORDS ADMINISTRATOR. Pt is a 53 yo female with past medical history of asthma, Htn, GERD, chronic pain PTSD and depression who presents with AMS. Pt took her Mom to Dr. Wray's offive for post-op visit. While in the waiting room pt became dizzy and less responsive. they checked her BP and it showed SBP of 70. they called EMS and brought her to the ER. On admission, Pt attributes the symptoms to the new psych meds. She also reports not eating since morning. Lab studies show wbc 6, hgb 10.8, K 3.4, Cr 0.72. At bedside, pt is in NAD. A/P: AMS: likely due to hypotension. Will continue IVF and check vitals signs. Pt attributes the symptoms to her new psych med (abilify 5mg po daily). Will hold the new psych med. CT head is unremarkable. Htn: Continue home med Hypokalemia: K is 3.4. Will replete and monitor. Asthma: Continue prn albuterol. Stable. Not in exacerbation. DVT ppx: heparin Code: full. <Avani Lei - Last Filed: 05/21/24 17:58>
[2024-05-21] MEDS: NA CHLORIDE 0.9% 1,000 ML IV SCH (17:08)
[2024-05-21] MEDS: carvediloL 12.5 MG TAB PO SCH (17:10)
[2024-05-21 17:15] VITALS: O2SAT 97
[2024-05-21 17:59] VITALS: BMI 19.9
[2024-05-21] MEDS: POTASSIUM CL SA 10 MEQ TAB PO ONE (18:23)
[2024-05-21] MEDS: GABAPENTIN 100 MG CAP PO SCH (20:32)
[2024-05-21] MEDS: LORAZEPAM 1 MG TABLET PO ONE ×2 (21:20→21:59)
[2024-05-21] MEDS: DIPHENHYDRAMINE 25 MG TAB/CAP PO PRN (21:59)
[2024-05-21] MEDS: GABAPENTIN 100 MG CAP PO ONE (21:59)
[2024-05-21] MEDS ORDERED: GABAPENTIN 100 MG CAP PO SCH (22:00)
[2024-05-22] MEDS: PANTOPRAZOLE 40MG TABLET PO SCH (06:23)
[2024-05-22] MEDS: GABAPENTIN 300 MG CAP PO SCH (07:45)
[2024-05-22] MEDS: VENLAFAXINE HCL XR 75 MG CAP PO SCH (07:45)
[2024-05-22] MEDS: BUSPIRONE HCL 5 MG TABLET PO SCH (07:45)
[2024-05-22] MEDS: ARIPiprazole 5 MG TAB PO SCH (07:46)
[2024-05-22 08:18] LABS: Absolute Basophils 0.1 K/uL (0-0.5); Absolute Eosinophils 0.6 K/uL (0-0.5); Absolute Lymphocytes (CBC) 3.2 K/uL (0.7-4.9); Absolute Monocytes 0.6 K/uL (0.1-1.3); Absolute Neutrophil 2.2 K/uL (1.8-8.0); Eosinophils % 8.9 % (0-4.4); Hematocrit 31.8 % (36.0-45.0); Hemoglobin 10.6 g/dL (12.0-15.0); Lymphocytes % 48.4 % (15.3-44.8); MCH 29.4 pg (27.0-35.0); MCHC 33.4 g/dL (32.0-36.0); MCV 88.2 fL (80-100); MPV 7.9 fL (7.6-11.3); Monocytes % 8.7 % (3.3-12.3); Platelets 356 thou/uL (152-406); RBC Red Blood Cell Count 3.61 M/uL (3.86-4.86); Red Cell Distribution Width 12.8 % (12.1-15.2)
[2024-05-22 08:58] LABS: Albumin 2.9 g/dL (3.4-5.0); Albumin/Globulin Ratio 0.9 (1.1-1.8); Anion Gap 3.2 mEq/L (5.0-15.0); Bilirubin Total 0.3 mg/dL (0.2-1.0); Globulin 3.2 g/dL (2.3-3.5); Potassium 4.2 mEq/L (3.5-5.1); Protein, Total 6.1 g/dL (6.4-8.2)
[2024-05-22] MEDS ORDERED: VENLAFAXINE HCL XR 37.5MG CAP PO SCH (09:00)
[2024-05-22 09:09] VITALS: BP 150/86; TEMP 98.4
--- NOTE | 2024-05-22 10:16 | P.DS ---
Admission Date: 05/21/24 Discharge Date: 05/22/24 Reason for Admission: Near syncope, hypotension, hyponatremia Consultations: none Procedures: none Brief History of Present Illness: Ms. Marin is a 53-year-old with a past medical history of alcoholism (sober x 3 to 4 years), hypertension, asthma, PTSD, and depression. She has recently seen her nurse practitioner and her psychiatrist, Dr. Hernandez. She was switched from citalopram to Effexor yesterday. Abilify was added to her regimen of lorazepam, hydrocodone, and gabapentin as well. This morning she awoke early to get ready to take her Mom to the Doctor in [place] from [place]. She did not eat but did take her medication (including Abilify). While her mom was being examined, she became obtunded, diaphoretic, with decreased orientation. EMS was called to the doctor's office. On their arrival her systolic blood pressure was in the 70s. She was given a fluid bolus and route to the emergency department. On exam she is feeling better, oriented x 3, but does appear sleepy. She will be admitted for observation, gentle hydration, and further evaluation. Vital signs on admission 97/76, 100% on room air, respirations 16, heart rate 73 LABS: WBC 6.0 with 35.9% neutrophils, interestingly her eosinophils are 9.1%, H/H 10.8/32.5 with platelets of 383 Sodium 128, potassium 3.4, chloride 93, CO2 32, glucose 85, BUN 9, creatinine 0.72 with a GFR of 99, EtOH less than 10, VBG with a pH of 7.3, UDS pending Imaging: CT head - impression "no acute intracranial abnormality" Chest x-ray -impression "no acute cardiopulmonary disease" Hospital Course: Ms. Marin did well over the course of the hospitalization. She is well- hydrated, her electrolytes have improved, her blood pressure has recovered and her decreased alert state has resolved. She is aware she needs to follow-up with her PCP and psychiatry to streamline her medication regimen. <Estelita Jessica - Last Filed: 05/22/24 10:16> Admission Date: 05/21/24 Discharge Date: 05/22/24 Hospital Course: Pt seen and examined. I agree with the note by the CREDIT SPECIALIST. Pt was rehydrated with IVF. Ok to discharge pt. <Avani Lei Dulce Maria - Last Filed: 05/22/24 10:32> Disposition: ROUTINE DISCHARGE Discharge Condition: GOOD Vital Signs/Physical Exam: Temp Pulse Resp BP Pulse Ox 98.4 F 69 16 150/86 H 98 05/22/24 08:00 05/22/24 08:00 05/22/24 08:00 05/22/24 08:00 05/22/24 08:00 General: Alert, In no apparent distress, Oriented x3 HEENT: Atraumatic, Normocephalic Neck: Supple Respiratory: Clear to auscultation bilaterally, Normal air movement Cardiovascular: No edema, Regular rate/rhythm Capillary refill: <2 Seconds Gastrointestinal: Normal bowel sounds, Soft and benign Musculoskeletal: No clubbing Integumentary: No rashes Neurological: Normal speech, Normal tone, Normal affect Lymphatics: No axilla or inguinal lymphadenopathy External genitalia: Deferred Rectal: Deferred Other Physical/Emotional Findings: PTSD, changing psych medications. Took Abilify and Effexor this am without eating and took her Mom to the Doctor. Tearful s/p dogbite in 02/09 that reactivated unresolved trauma. Feeling like herself, more alert, normalized blood pressure. Discharge pending Laboratory Data at Discharge: WBC 6.50 thou/uL (4.3-10.9) 05/22/24 07:24 Hgb 10.6 g/dL (12.0-15.0) L 05/22/24 07:24 Hct 31.8 % (36.0-45.0) L 05/22/24 07:24 Plt Count 356 thou/uL (152-406) 05/22/24 07:24 PT 13.0 SECONDS (9.4-12.5) H 05/21/24 11:35 INR 1.19 05/21/24 11:35 APTT 27.5 SECONDS (24.3-36.9) 05/21/24 11:35 Sodium 135 mEq/L (136-145) L D 05/22/24 07:24 Potassium 4.2 mEq/L (3.5-5.1) D 05/22/24 07:24 BUN 5 mg/dL (7-18) L 05/22/24 07:24 Creatinine 0.52 mg/dL (0.55-1.02) L 05/22/24 07:24 Glucose 94 mg/dL (74-106) 05/22/24 07:24 Total Bilirubin 0.3 mg/dL (0.2-1.0) 05/22/24 07:24 AST 15 U/L (15-37) 05/22/24 07:24 ALT 26 U/L (13-56) 05/22/24 07:24 Alkaline Phosphatase 100 U/L (45-117) D 05/22/24 07:24 Triglycerides 113 mg/dL (<150) 05/22/24 07:24 Cholesterol 171 mg/dL (<200) 05/22/24 07: HDL Cholesterol 68 mg/dL (40-60) H 05/22/24 07:24 Cholesterol/HDL Ratio 2.51 05/22/24 07:24 <Jessica,Estelita Jim - Last Filed: 05/22/24 10:16> Vital Signs/Physical Exam: Temp Pulse Resp BP Pulse Ox 98.4 F 69 16 150/86 H 98 05/22/24 08:00 05/22/24 08:00 05/22/24 08:00 05/22/24 08:00 05/22/24 08:00 Laboratory Data at Discharge: WBC 6.50 thou/uL (4.3-10.9) 05/22/24 07:24 Hgb 10.6 g/dL (12.0-15.0) L 05/22/24 07:24 Hct 31.8 % (36.0-45.0) L 05/22/24 07:24 Plt Count 356 thou/uL (152-406) 05/22/24 07:24 PT 13.0 SECONDS (9.4-12.5) H 05/21/24 11:35 INR 1.19 05/21/24 11:35 APTT 27.5 SECONDS (24.3-36.9) 05/21/24 11:35 Sodium 135 mEq/L (136-145) L D 05/22/24 07:24 Potassium 4.2 mEq/L (3.5-5.1) D 05/22/24 07:24 BUN 5 mg/dL (7-18) L 05/22/24 07:24 Creatinine 0.52 mg/dL (0.55-1.02) L 05/22/24 07:24 Glucose 94 mg/dL (74-106) 05/22/24 07:24 Total Bilirubin 0.3 mg/dL (0.2-1.0) 05/22/24 07:24 AST 15 U/L (15-37) 05/22/24 07:24 ALT 26 U/L (13-56) 05/22/24 07:24 Alkaline Phosphatase 100 U/L (45-117) D 05/22/24 07:24 Triglycerides 113 mg/dL (<150) 05/22/24 07:24 Cholesterol 171 mg/dL (<200) 05/22/24 07:24 HDL Cholesterol 68 mg/dL (40-60) H 05/22/24 07:24 Cholesterol/HDL Ratio 2.51 05/22/24 07:24 <Avani Lei - Last Filed: 05/22/24 10:32> Diet: Regular Activity: Ad vesna <Estelita Jessica - Last Filed: 05/22/24 10:16> <Avani Lei - Last Filed: 05/22/24 10:32> Home Medications: Carvedilol [Coreg] 12.5 mg PO BID 06/14/23 Gabapentin 300 mg PO BID 06/14/23 Hydrocodone Bit/Acetaminophen [Hydrocodon-Acetaminophn 10-325] 1 tab PO TIDP PRN 06/14/23 LORazepam [Ativan*] 2 mg PO TIDP PRN 06/14/23 Pantoprazole Sodium 1 tab PO DAILY 06/14/23 ARIPiprazole [Abilify*] 1 tab PO DAILY 05/21/24 Albuterol Inhaler [Ventolin Inhaler*] 2 puff IH PRN PRN 05/21/24 Buspirone HCl [Buspar] 10 mg PO BID 05/21/24 Dicyclomine [Bentyl] 10 mg PO TID 05/21/24 Diphenhydramine [Benadryl Tab/Cap] 50 mg PO BEDTIME PRN PRN 05/21/24 Fluticasone/Umeclidin/Vilanter [Trelegy Ellipta 100-62.5-25] 1 puff IH DAILY 05/21/24 Methylprednisolone [Medrol dosepack] 4 mg PO TID 05/21/24 Flavio/Polym/Hc Otic Nena [Cortisporin 1% Otic Solution*] 2 - 3 drops EACH EAR TIDP PRN 05/21/24 Prazosin HCl [Minipress] 1 mg PO BEDTIME 05/21/24 Venlafaxine HCl [Effexor Xr] 75 mg PO DAILY 05/21/24 predniSONE [Deltasone] 5 mg PO DAILY 05/21/24 Physician Discharge Instructions: Ms. Marin did well over the course of the hospitalization. She is well- hydrated, her electrolytes have improved, her blood pressure has recovered and her decreased alert state has resolved. She is aware she needs to follow-up with her PCP and psychiatry to streamline her medication regimen. Okay to DC IV and DC home Follow-up with primary care provider in 1 to 2 weeks Follow-up with psychiatry (Dr. Hernandez) in 1 week Please call the inpatient unit for any questions or concerns regarding hospital stay Return to the ER for worsening symptoms Followup: Mac Frazier MD [Primary Care Provider] -
--- NOTE | 2024-05-23 11:14 | EKG ---
Test Date: 2024-05-21 Test Time: 12:19:19 Sheep Shearer: LAMINE MEASUREMENT RESULTS: Intervals: Rate: 65 UT: 162 QRSD: 74 QT: 462 QTc: 480 [place]: P: 32 UT: 162 QRS: 47 T: 51 INTERPRETIVE STATEMENTS: Normal sinus rhythm Prolonged QT Abnormal ECG Compared to ECG 06/14/2023 16:20:21 Prolonged QT interval now present Electronically Signed On 05-23-24 11:12:17 CDT by Johny Casarez
== END 2024-05-22 12:45 | disposition home or self-care (01) ==
LOC: ER 11:14 → ERHOLD 14:36 → 2ND 17:03
PROVIDERS: ADMIT Hospitalist; ATTEND Hospitalist
DX: R55 Syncope and collapse (principal); I95.9 Hypotension, unspecified; E87.1 Hypo-osmolality and hyponatremia; I10 Essential (primary) hypertension; F43.10 Post-traumatic stress disorder, unspecified; J45.909 Unspecified asthma, uncomplicated; F10.21 Alcohol dependence, in remission; F32.A Depression, unspecified
CPT/HCPCS: 85025 ×2; 80048; 36415; 85610; 80061; 80076; 85730; 80053; 70450; 71045; 82805; 80143; 80179; 82077; 36600; J7030; 93005; 99285